=== PATIENT | female | born 1980 ===

== ENCOUNTER 2020-07-27 20:36 | Emergency (ER) | payer OTHER ==
[2020-07-27] MEDS ORDERED: Acetaminophen/HYDROcodone 325-10 MG Tab PO ONE (20:37)
--- NOTE | 2020-07-27 21:39 | CR ---
PROCEDURE INFORMATION: Exam: XR Right Foot Exam date and time: 07/27/2020 9:12 PM Age: 40 years old Clinical indication: Swelling, leg or foot; Additional info: Board fell on RT. Foot. TECHNIQUE: Imaging protocol: XR Right foot. Views: 1 or 2 views. COMPARISON: No relevant prior studies available. FINDINGS: Bones/joints: There is no evidence of acute fracture. There is no subluxation or dislocation. No bone destruction. No periosteal reaction. Soft tissues: There is extensive soft tissue swelling on the dorsum of the foot. IMPRESSION: Soft tissue swelling without associated abnormalities.
[2020-07-27] MEDS ORDERED: Acetaminophen/HYDROcodone 325-10 MG Tab ONE (22:05)
--- NOTE | 2020-07-27 22:07 | EDM.PDOC ---
ED HPI GENERAL MEDICAL PROBLEM - General Chief Complaint: Lower Extremity Injury/Pain Stated Complaint: DROPPED BOARD ON RIGHT FOOT Time Seen by Provider: 07/27/20 22:05 Source of Information: Reports: Patient History Limitations: Reports: No Limitations - History of Present Illness INITIAL COMMENTS - FREE TEXT/NARRATIVE: dropped board onto foot tonight Treatments P[employer]: Reports: NSAIDS Right Feet Pain Score (Numeric/FACES): 6 - Related Data Allergies Allergy/AdvReac Type Severity Reaction Status Date / Time codeine Allergy Vomiting Verified 07/27/20 20:58 Home Meds: Home Meds lisinopriL [Prinivil] 20 mg PO DAILY 07/27/20 [History] norgestrel-ethinyl estradioL [Elinest-28 Tablet] 1 tab PO DAILY 07/27/20 [History] Past Medical History HEENT History: Reports: Impaired Vision, Other (See Below) Other HEENT History: wears contacts Cardiovascular History: Reports: Hypertension Musculoskeletal History: Reports: Back Pain, Chronic Other Musculoskeletal History: L3-L5 issues. - Past Surgical History GI Surgical History: Reports: Appendectomy Social & Family History - Family History Family Medical History: No Pertinent Family History - Tobacco Use Tobacco Use Status *Q: Never Tobacco User Second Hand Smoke Exposure: No - Caffeine Use Caffeine Use: Reports: Coffee - Recreational Drug Use Recreational Drug Use: No Review of Systems - Review of Systems Review Of Systems: Comprehensive ROS is negative, except as noted in HPI. ED EXAM, GENERAL - Physical Exam Exam: See Below Exam Limited By: No Limitations General Appearance: Alert, WD/WN, Mild Distress, Other (pain) Ears: Hearing Grossly Normal Throat/Mouth: Normal Voice, No Airway Compromise Head: Atraumatic Neck: Non-Tender, Full Range of Motion Respiratory/Chest: No Respiratory Distress Cardiovascular: Regular Rate, Rhythm GI/Abdominal: Soft, Non-Tender (Female) Exam: Deferred Rectal (Female) Exam: Deferred Extremities: Other (right foot dorsum swollen tender R/P, NV wnl, gait limited to pain) Neurological: Alert, Oriented, Normal Cognition, No Motor/Sensory Deficits Psychiatric: Tearful Skin Exam: Warm, Dry, Normal Color Lymphatic: No Adenopathy Course - Vital Signs Last Recorded V/S: Last Vital Signs Temp 35.6 C L 07/27/20 20:52 Pulse 95 07/27/20 20:52 Resp 18 07/27/20 20:52 BP 140/84 07/27/20 20:52 Pulse Ox 100 07/27/20 20:52 Departure - Departure Time of Disposition: 22:06 Disposition: Home, Self-Care 01 Condition: Good Clinical Impression: Contusion of foot, right Qualifiers: Encounter type: initial encounter Qualified Code(s): S90.31XA - Contusion of right foot, initial encounter - Discharge Information Instructions: Contusion, [id number] Forms: ED Department Discharge Additional Instructions: 1) elevate foot as much as possible over the weekend 2) ice intermittently for swelling 3) recheck as needed rx togo; norco 10 x1 Sepsis Event Note (ED) - Evaluation Sepsis Screening Result: No Definite Risk - Focused Exam Vital Signs: Vital Signs Temp Pulse Resp BP Pulse Ox 07/27/20 20:52 35.6 C L 95 18 140/84 100
== END 2020-07-27 22:10 | disposition home or self-care (01) ==
LOC: DL.ED 20:36
DX: S90.31XA Contusion of right foot, initial encounter (principal); I10 Essential (primary) hypertension; Z88.5 Allergy status to narcotic agent; Z79.899 Other long term (current) drug therapy; W20.8XXA Other cause of strike by thrown, projected or falling object, initial encounter
CPT/HCPCS: 73620-RT; 99283-25; A9270-GY